=== PATIENT | female | born 1960 | race African-American/Black ===

== ENCOUNTER 2017-03-26 18:34 | Emergency (ER) | payer BC, MEDICARE ==
[~2017-03-26] VITALS: Ht 152.4 cm; Wt 62.3 kg
[2017-03-26] MEDS ORDERED: INSU100I21 SQ (18:45)
[2017-03-26] MEDS ORDERED: INSU100I3 SQ (18:45)
[2017-03-26 18:47] LABS: GLUCOSE,POINT OF CARE 161 MG/DL (70-110)
[2017-03-26 19:24] VITALS: BP 129/74
[2017-03-26 20:55] LABS: BASOPHILS # (AUTO) 0.03 K/uL (0.00-0.20); BASOPHILS % (AUTO) 0.5 % (0.0-2.0); EOSINOPHILS # (AUTO) 0.08 K/uL (0.00-0.70); EOSINOPHILS % (AUTO) 1.21 % (1.0-6.0); HEMOGLOBIN 13.9 g/dL (12.0-16.0); LYMPHOCYTES # (AUTO) 3.4 K/uL (1.0-4.8); LYMPHOCYTES % (AUTO) 52.1 % (22.0-44.0); MEAN CORPUSCULAR HEMOGLOBIN 30.6 pg (26.0-34.0); MEAN CORPUSCULAR HGB CONC 33.8 G/dL (31.0-37.0); MEAN CORPUSCULAR VOLUME 90 fL (80-100); MONOCYTES # (AUTO) 0.4 K/uL (0.1-1.0); MONOCYTES % (AUTO) 6.9 % (2.0-9.0); NEUTROPHILS # (AUTO) 2.5 K/uL (1.8-7.7); NEUTROPHILS % (AUTO) 39.3 % (40.0-70.0); PLATELET COUNT (AUTO) 134 K/uL (150-450); RED BLOOD CELL COUNT(AUTO) 4.53 MIL/uL (4.00-5.20); RED CELL DISTRIBUTION WIDTH 14.3 % (11.5-14.5); WHITE BLOOD COUNT (AUTO) 6.5 K/uL (4.5-11.0)
[2017-03-26 21:09] LABS: ANION GAP 4 mmol/L (8-16); CALCIUM, TOTAL 9.2 mg/dL (8.8-10.5); CARBON DIOXIDE 29 mmol/L (22-29); CHLORIDE 103 mmol/L (98-107); CREATININE 1.02 mg/dL (0.60-1.30); GLOMERULAR FILTR. RATE CALC > 60 mL/min (>60); POTASSIUM 3.7 mmol/L (3.5-5.1); SODIUM SERUM 136 mmol/L (136-145); UREA NITROGEN, BLOOD 15 mg/dL (7-18)
[2017-03-26 21:15] LABS: ALANINE AMINOTRANSFERASE 28 U/L (12-78); ALBUMIN 3.9 g/dL (3.4-5.0); ASPARTATE AMINOTRANSFERASE 15 U/L (15-37); BILIRUBIN,TOTAL 0.3 mg/dL (0.1-1.0); TOTAL PROTEIN, SERUM 7.6 g/dL (6.4-8.2)
[2017-03-26 21:20] LABS: APPEARANCE,URINE CLEAR (CLEAR); GLUCOSE, URINE (UA) NEGATIVE (NEGATIVE); KETONES,URINE NEGATIVE (NEGATIVE); LEUKOCYTE ESTERASE ,URINE NEGATIVE (NEGATIVE); OCCULT BLOOD,URINE NEGATIVE (NEGATIVE); PROTEIN,URINE NEGATIVE (NEGATIVE)
[2017-03-26 21:21] LABS: ADD UA MICROSCOPIC NO
[2017-03-26] MEDS ORDERED: ACYCLOVIR 200 MG CAPSULE PO ONE (22:00)
== END 2017-03-26 22:02 | disposition home or self-care (01) ==
LOC: EMS 18:36
DX: E11.40 Type 2 diabetes mellitus with diabetic neuropathy, unspecified (principal); B02.9 Zoster without complications; F17.210 Nicotine dependence, cigarettes, uncomplicated; Z79.4 Long term (current) use of insulin; Z88.0 Allergy status to penicillin; Z88.5 Allergy status to narcotic agent
CPT/HCPCS: 82962; 99284

== ENCOUNTER 2017-09-24 18:44 | Emergency (ER) | payer SELFPAY ==
[~2017-09-24] VITALS: Ht 152.4 cm; Wt 61.4 kg
[~2017-09-24 18:44] MED LIST: INSU100I21 SQ; INSU100I3 SQ
[2017-09-24 19:02] LABS: GLUCOSE,POINT OF CARE 332 MG/DL (70-110)
[2017-09-24 20:00] LABS: BASOPHILS % (AUTO) 0.6 % (0.0-2.0); EOSINOPHILS % (AUTO) 0.7 % (1.0-6.0); HEMATOCRIT 39.8 % (36-46); LYMPHOCYTES # (AUTO) 1.7 K/uL (1.0-4.8); LYMPHOCYTES % (AUTO) 32.2 % (22.0-44.0); MEAN CORPUSCULAR HEMOGLOBIN 31.4 pg (26.0-34.0); MEAN CORPUSCULAR HGB CONC 35.3 G/dL (31.0-37.0); MEAN CORPUSCULAR VOLUME 89 fL (80-100); MONOCYTES # (AUTO) 0.4 K/uL (0.1-1.0); MONOCYTES % (AUTO) 8.4 % (2.0-9.0); NEUTROPHILS % (AUTO) 58.1 % (40.0-70.0); PLATELET COUNT (AUTO) 132 K/uL (150-450); RED BLOOD CELL COUNT(AUTO) 4.47 MIL/uL (4.00-5.20)
[2017-09-24 20:19] LABS: ANION GAP 5 mmol/L (8-16); CALCIUM, TOTAL 9.1 mg/dL (8.8-10.5); CARBON DIOXIDE 30 mmol/L (22-29); CHLORIDE 101 mmol/L (98-107); CREATININE 1.09 mg/dL (0.60-1.30); GLOMERULAR FILTR. RATE CALC > 60 mL/min (>60); GLUCOSE,RANDOM 272 mg/dL (70-110); POTASSIUM 3.7 mmol/L (3.5-5.1); SODIUM SERUM 136 mmol/L (136-145); UREA NITROGEN, BLOOD 10 mg/dL (7-18)
[2017-09-24 20:24] LABS: ALANINE AMINOTRANSFERASE 29 U/L (12-78); ALBUMIN 3.7 g/dL (3.4-5.0); ALKALINE PHOSPHATASE 115 U/L (46-116); ASPARTATE AMINOTRANSFERASE 13 U/L (15-37); BILIRUBIN,TOTAL 0.2 mg/dL (0.1-1.0); TOTAL PROTEIN, SERUM 7.8 g/dL (6.4-8.2)
[2017-09-24 21:09] LABS: APPEARANCE,URINE CLEAR (CLEAR); BILIRUBIN,URINE NEGATIVE (NEGATIVE); GLUCOSE, URINE (UA) >=1000 mg/dL (NEGATIVE); KETONES,URINE NEGATIVE (NEGATIVE); LEUKOCYTE ESTERASE ,URINE TRACE (NEGATIVE); NITRATE,URINE NEGATIVE (NEGATIVE); OCCULT BLOOD,URINE NEGATIVE (NEGATIVE); PROTEIN,URINE NEGATIVE (NEGATIVE); UROBILINOGEN,URINE 0.2 mg/dL (<=1.0)
[2017-09-24 21:25] LABS: BACTERIA,URINE Moderate /HPF (None Seen); RBC,URINE 0-2 /HPF (0-2)
[2017-09-24 23:16] VITALS: BP 129/81
== END 2017-09-24 23:31 | disposition home or self-care (01) ==
LOC: EMS 18:49
DX: R53.83 Other fatigue (principal); E11.9 Type 2 diabetes mellitus without complications; F17.210 Nicotine dependence, cigarettes, uncomplicated; Z79.4 Long term (current) use of insulin; Z88.0 Allergy status to penicillin; Z88.5 Allergy status to narcotic agent; Z90.49 Acquired absence of other specified parts of digestive tract; Z90.710 Acquired absence of both cervix and uterus
CPT/HCPCS: 87086; 99284

== ENCOUNTER 2022-03-18 22:14 | Emergency (ER) | payer MEDICAID ==
[~2022-03-18] VITALS: Ht 152.4 cm; Wt 55.0 kg
[2022-03-18] MEDS ORDERED: ATOR20TA86 PO (22:39)
[2022-03-19] MEDS ORDERED: BACLOFEN 10 MG TABLET PO ONE (00:15)
[2022-03-19] MEDS ORDERED: IBUPROFEN 600 MG TABLET PO ONE (00:15)
[2022-03-19] MEDS ORDERED: ONDANSETRON HCL 4 MG TABLET PO ONE (00:15)
[2022-03-19] MEDS ORDERED: HYDROCODONE/ACETAMINOPHEN 5-325 MG TABLET PO ONE (00:15)
[2022-03-19 00:50] VITALS: BP 157/83
[2022-03-19] MEDS ORDERED: BACL10TA PO (01:48)
[2022-03-19] MEDS ORDERED: IBUP-1554 PO (01:48)
== END 2022-03-19 02:29 | disposition home or self-care (01) ==
LOC: EMS 22:15
DX: S39.012A Strain of muscle, fascia and tendon of lower back, initial encounter (principal); E11.9 Type 2 diabetes mellitus without complications; E78.00 Pure hypercholesterolemia, unspecified; F17.210 Nicotine dependence, cigarettes, uncomplicated; Z90.49 Acquired absence of other specified parts of digestive tract; Z90.710 Acquired absence of both cervix and uterus; Z88.0 Allergy status to penicillin; Z88.5 Allergy status to narcotic agent; X50.1XXA Overexertion from prolonged static or awkward postures, initial encounter; Y93.89 Activity, other specified; Y92.89 Other specified places as the place of occurrence of the external cause; Y99.8 Other external cause status
CPT/HCPCS: 99284; 72100; 73521; Q0162